=== PATIENT | male | born 1930 | race Caucasian/White ===

== ENCOUNTER 2017-04-26 08:31 | Inpatient (IN) | payer MEDICARE, OTHER ==
[~2017-04-26] VITALS: Ht 5871 cm; Wt 84.1 kg
[~2017-04-26 08:31] MED LIST: ACET-2119 PO; ATEN25TA PO; ATOR-2 PO; CARB1TAB23 PO; COLC0.6T67 PO; DOCU100C41 PO; ERGO500014 PO; FAMO40TA73 PO; FLO0.4C PO; HYDR-3965 PO; HYDR-3972 PO; LORA-512 PO; LYR25C PO; MYL80T PO; POLY15DR56 EACHEYE; SENN-61 PO; SPIR25TA PO
[2017-04-26] MEDS ORDERED: furosemide 40mg/4ml inj IV ONE (08:40)
[2017-04-26 09:14] LABS: BASOPHILS % (AUTO) 0.3 % (0-1); EOSINOPHILS # (AUTO) 0.2 X10'3 (0-0.9); EOSINOPHILS % (AUTO) 1.7 % (0-6); HEMATOCRIT 37.6 % (42.0-52.0); HEMOGLOBIN 12.3 g/dl (14.0-17.9); LYMPHOCYTES # (AUTO) 0.9 X10'3 (1.1-4.8); LYMPHOCYTES % (AUTO) 8.8 % (21-51); MEAN CORPUSCULAR HEMOGLOBIN 28.3 PG (27.0-31.0); MEAN CORPUSCULAR HGB CONC 32.7 % (33.0-36.5); MEAN CORPUSCULAR VOLUME 86.5 FL (78-98); MEAN PLATELET VOLUME 8.8 FL (7.4-10.4); MONOCYTES # (AUTO) 0.8 X10'3 (0-0.9); MONOCYTES % (AUTO) 8.1 % (2-12); NEUTROPHILS # (AUTO) 8.3 X10'3 (1.8-7.7); NEUTROPHILS % (AUTO) 81.1 % (42-75); PLATELET COUNT 280 X10'3 (140-440); RED BLOOD COUNT 4.34 X10'6 (4.70-6.10); RED CELL DISTRIBUTION WIDTH 18.4 % (11.5-14.5); WHITE BLOOD COUNT 10.3 X10'3 (4.5-11.0)
[2017-04-26 09:28] LABS: PARTIAL THROMBOPLASTIN TIME 30 SECONDS (22-32)
[2017-04-26] MEDS ORDERED: azithromycin/NS 500mg/250ml 250 ML IV ONE (09:35)
[2017-04-26] MEDS ORDERED: cefTRIAXone 1g/NS 100ml IVPB 100 ML IV ONE (09:35)
[2017-04-26 09:39] LABS: ALANINE AMINOTRANSFERASE 7 U/L (12-78); ALBUMIN 3.4 G/DL (3.4-5.0); ALBUMIN/GLOBULIN RATIO 0.8 (1.1-1.5); ALKALINE PHOSPHATASE 61 IU/L (46-116); ANION GAP 6 (8-16); ASPARTATE AMINO TRANSFERASE 18 U/L (10-37); BILIRUBIN,TOTAL 0.5 MG/DL (0.1-1.0); BLOOD UREA NITROGEN 16 MG/DL (7-18); BUN/CREATININE RATIO 13.6 (5.4-32.0); CALCIUM 8.7 MG/DL (8.5-10.1); CHLORIDE 106 MMOL/L (99-107); CREATININE 1.18 MG/DL (0.60-1.10); GLUCOSE 119 MG/DL (70-104); MAGNESIUM 1.5 MG/DL (1.5-2.4); POTASSIUM 4.4 MMOL/L (3.5-5.1); SODIUM 142 MMOL/L (135-145); TOTAL CARBON DIOXIDE 30.1 MMOL/L (24-32); TOTAL PROTEIN 7.6 G/DL (6.4-8.2); eGFR 59 ML/MIN
[2017-04-26 09:51] LABS: ABG HCO3 25.8 mmol/L (22.0-26.0); ABG OXYGEN SATURATION 92.9 % (95-98); ABG PCO2 (T) 42.8 mmHg (35.0-48.0); ABG PO2 (T) 64.6 mmHg (83-108); ALLEN'S TEST Positive; FCOHb 0.8 % (0.5-1.5); FLOW 2 L/min; FMetHb 0.2 % (0.3-1.12); PATIENT TEMPERATURE 37.6; TOTAL HEMOGLOBIN 13.3 G/dl (14.0-18.0)
[2017-04-26 10:00] LABS: CLARITY,URINE Clear (Clear); COLOR,URINE Yellow (Yellow); GLUCOSE, URINE Negative (Neg); KETONES,URINE Negative (Neg); LEUKOCYTE ESTERASE ,URINE Negative (Neg); NITRITES, URINE Negative (Neg); OCCULT BLOOD,URINE Negative (Neg); PROTEIN,URINE 100 mg/dl (Neg); UROBILINOGEN,URINE 0.2 E.U/dL (0.2-1.0)
[2017-04-26 10:06] LABS: UA COLLECTION TYPE CLN CATCH MIDSTREAM
[2017-04-26 10:27] LABS: BACTERIA,URINE NONE SEEN /HPF (Neg); RBC,URINE NONE SEEN /HPF (0-2); SQUAMOUS EPITHELIAL CELL,UR FEW /LPF (FEW); WBC,URINE NONE SEEN /HPF (0-4)
[2017-04-26] MEDS ORDERED: acetaminophen 325mg tablet PO PRN (10:45)
[2017-04-26] MEDS ORDERED: ondansetron/PF 4mg/2ml inj IV PRN (10:45)
[2017-04-26] MEDS ORDERED: magnesium hydroxide 30ml (MOM) UD suspension PO PRN (10:45)
[2017-04-26] MEDS ORDERED: mag hydrox/Alum hydrox/simeth 30ml oral suspension PO PRN (10:45)
[2017-04-26] MEDS ORDERED: atenolol 25mg tablet PO SCH (11:00)
[2017-04-26] MEDS ORDERED: HYDROcodone/acetaminophen 10/325mg tab PO PRN (11:05)
[2017-04-26] MEDS: tamsulosin 0.4mg capsule PO SCH (11:27)
[2017-04-26] MEDS: enoxaparin 40mg/0.4ml syringe SUBCUT SCH (11:27)
[2017-04-26] MEDS: spironolactone 25 MG tablet PO SCH (11:27)
[2017-04-26] MEDS ORDERED: ASPI-1265 PO (12:01)
[2017-04-26] MEDS ORDERED: DEXT15DR7 EACHEYE (12:05)
[2017-04-26] MEDS ORDERED: ALLO100T PO (12:05)
[2017-04-26] MEDS ORDERED: VITA-268 PO (12:06)
[2017-04-26] MEDS ORDERED: OMEP40CA37 PO (12:09)
[2017-04-26] MEDS: piperacillin/tazo 3.375gm/50ml 50 ML IV SCH ×2 (14:20→21:09)
[2017-04-26] MEDS: ipratropium/albuterol 3ml nebule NEB SCH ×3 (15:22→23:46)
[2017-04-26 19:00] VITALS: BP 158/62
[2017-04-26] MEDS ORDERED: atenolol 50mg tablet PO SCH (19:39)
[2017-04-26] MEDS: polyvinyl alcohol ophthalmic drops 15ml bottle EACHEYE SCH (21:00)
[2017-04-26] MEDS: pregabalin 25mg capsule PO SCH (21:01)
[2017-04-26] MEDS: atorvastatin 20mg tablet PO SCH (21:01)
[2017-04-26] MEDS: docusate sod 100mg capsule PO SCH (21:03)
[2017-04-26] MEDS: aspirin 81mg tablet.DR PO SCH (21:04)
[2017-04-26] MEDS: sennosides/docusate sodium tablet PO SCH (21:04)
[2017-04-26] MEDS: famotidine 20mg tablet PO SCH (21:04)
[2017-04-26] MEDS: carbidoba-levodopa 25-100mg tablet PO SCH (21:05)
[2017-04-26 23:00] VITALS: BP 158/62
[2017-04-27] MEDS: piperacillin/tazo 3.375gm/50ml 50 ML IV SCH ×4 (02:44→21:44)
[2017-04-27 03:00] VITALS: BP 168/72
[2017-04-27] MEDS: ipratropium/albuterol 3ml nebule NEB SCH ×6 (04:05→23:00)
[2017-04-27] MEDS ORDERED: furosemide 10 MG/1 ML 10ml inj IV ONE (04:55)
[2017-04-27 05:21] LABS: ALBUMIN 3.3 G/DL (3.4-5.0); ANION GAP 13 (8-16); BLOOD UREA NITROGEN 22 MG/DL (7-18); BUN/CREATININE RATIO 17.3 (5.4-32.0); CALCIUM 8.5 MG/DL (8.5-10.1); CHLORIDE 103 MMOL/L (99-107); CREATININE 1.27 MG/DL (0.60-1.10); GLUCOSE 135 MG/DL (70-104); POTASSIUM 4.1 MMOL/L (3.5-5.1); SODIUM 142 MMOL/L (135-145); TOTAL CARBON DIOXIDE 26.3 MMOL/L (24-32); eGFR 54 ML/MIN
[2017-04-27 05:25] LABS: TROPONIN I 0.68 NG/ML (0.0-0.05)
[2017-04-27 05:38] LABS: BASOPHILS # (AUTO) 0.1 X10'3 (0-0.2); BASOPHILS % (AUTO) 0.6 % (0-1); EOSINOPHILS % (AUTO) 0.4 % (0-6); HEMATOCRIT 38.9 % (42.0-52.0); HEMOGLOBIN 12.6 g/dl (14.0-17.9); LYMPHOCYTES # (AUTO) 1.1 X10'3 (1.1-4.8); LYMPHOCYTES % (AUTO) 12.1 % (21-51); MEAN CORPUSCULAR HGB CONC 32.5 % (33.0-36.5); MEAN PLATELET VOLUME 9.2 FL (7.4-10.4); MONOCYTES % (AUTO) 11.4 % (2-12); NEUTROPHILS # (AUTO) 6.7 X10'3 (1.8-7.7); NEUTROPHILS % (AUTO) 75.5 % (42-75); PLATELET COUNT 243 X10'3 (140-440); RED BLOOD COUNT 4.52 X10'6 (4.70-6.10); RED CELL DISTRIBUTION WIDTH 18.7 % (11.5-14.5); WHITE BLOOD COUNT 8.9 X10'3 (4.5-11.0)
[2017-04-27 06:00] VITALS: BP 154/74
[2017-04-27] MEDS: polyvinyl alcohol ophthalmic drops 15ml bottle EACHEYE SCH ×2 (07:28→21:44)
[2017-04-27] MEDS: enoxaparin 40mg/0.4ml syringe SUBCUT SCH (07:43)
[2017-04-27] MEDS: carbidoba-levodopa 25-100mg tablet PO SCH ×2 (07:44→21:45)
[2017-04-27] MEDS: famotidine 20mg tablet PO SCH ×2 (07:44→21:45)
[2017-04-27] MEDS: pregabalin 25mg capsule PO SCH ×2 (07:44→21:46)
[2017-04-27] MEDS: spironolactone 25 MG tablet PO SCH (07:44)
[2017-04-27] MEDS: loratadine 10mg tablet PO SCH (07:45)
[2017-04-27] MEDS: sennosides/docusate sodium tablet PO SCH ×2 (07:45→21:45)
[2017-04-27] MEDS: aspirin 81mg tablet.DR PO SCH (07:45)
[2017-04-27] MEDS: docusate sod 100mg capsule PO SCH ×2 (07:46→21:46)
[2017-04-27] MEDS ORDERED: atenolol 25mg tablet PO ONE (07:55)
[2017-04-27] MEDS ORDERED: guaiFENesin/DM 10ml UD oral syrup PO PRN (10:30)
[2017-04-27] MEDS: colchicine 0.6mg tablet PO SCH (10:38)
[2017-04-27] MEDS ORDERED: guaiFENesin/DM oral syrup 5 ML CUP PO PRN (10:52)
[2017-04-27 11:00] VITALS: BP 144/68
[2017-04-27 15:00] VITALS: BP 102/57
[2017-04-27] MEDS: tamsulosin 0.4mg capsule PO SCH (15:57)
[2017-04-27 19:00] VITALS: BP 155/64
[2017-04-27] MEDS: atorvastatin 20mg tablet PO SCH (21:45)
[2017-04-27] MEDS: lactobacillus rhamnosus 10,000 MMU CELLS/CAPSULE PO SCH (21:46)
[2017-04-27] MEDS: magnesium oxide 400mg tablet PO SCH (21:52)
[2017-04-27 23:00] VITALS: BP 137/64
[2017-04-28] MEDS: piperacillin/tazo 3.375gm/50ml 50 ML IV SCH ×4 (02:29→21:23)
[2017-04-28 03:00] VITALS: BP 142/72
[2017-04-28] MEDS: ipratropium/albuterol 3ml nebule NEB SCH (03:00)
[2017-04-28] MEDS ORDERED: ipratropium/albuterol 3ml nebule NEB PRN (05:20)
[2017-04-28 05:27] LABS: BASOPHILS % (AUTO) 0.6 % (0-1); EOSINOPHILS # (AUTO) 0.1 X10'3 (0-0.9); EOSINOPHILS % (AUTO) 0.9 % (0-6); HEMATOCRIT 40.8 % (42.0-52.0); HEMOGLOBIN 13.2 g/dl (14.0-17.9); LYMPHOCYTES # (AUTO) 1.4 X10'3 (1.1-4.8); LYMPHOCYTES % (AUTO) 21.4 % (21-51); MEAN CORPUSCULAR HEMOGLOBIN 27.9 PG (27.0-31.0); MEAN CORPUSCULAR HGB CONC 32.3 % (33.0-36.5); MEAN CORPUSCULAR VOLUME 86.2 FL (78-98); MEAN PLATELET VOLUME 9.3 FL (7.4-10.4); MONOCYTES # (AUTO) 1.1 X10'3 (0-0.9); MONOCYTES % (AUTO) 16.5 % (2-12); NEUTROPHILS # (AUTO) 3.9 X10'3 (1.8-7.7); NEUTROPHILS % (AUTO) 60.6 % (42-75); PLATELET COUNT 219 X10'3 (140-440); RED BLOOD COUNT 4.74 X10'6 (4.70-6.10); RED CELL DISTRIBUTION WIDTH 18.1 % (11.5-14.5); WHITE BLOOD COUNT 6.5 X10'3 (4.5-11.0)
[2017-04-28 05:59] LABS: ALBUMIN 3.2 G/DL (3.4-5.0); ANION GAP 9 (8-16); BLOOD UREA NITROGEN 27 MG/DL (7-18); BUN/CREATININE RATIO 18.8 (5.4-32.0); CALCIUM 8.9 MG/DL (8.5-10.1); CHLORIDE 102 MMOL/L (99-107); CREATININE 1.44 MG/DL (0.60-1.10); GLUCOSE 109 MG/DL (70-104); MAGNESIUM 2.1 MG/DL (1.5-2.4); POTASSIUM 4.4 MMOL/L (3.5-5.1); SODIUM 143 MMOL/L (135-145); TOTAL CARBON DIOXIDE 31.7 MMOL/L (24-32); eGFR 47 ML/MIN
[2017-04-28 06:00] VITALS: BP 176/87
[2017-04-28] MEDS: pregabalin 25mg capsule PO SCH ×2 (07:53→21:23)
[2017-04-28] MEDS: carbidoba-levodopa 25-100mg tablet PO SCH ×2 (07:53→21:23)
[2017-04-28] MEDS: atenolol 50mg tablet PO SCH (07:53)
[2017-04-28] MEDS: famotidine 20mg tablet PO SCH ×2 (07:54→21:23)
[2017-04-28] MEDS: colchicine 0.6mg tablet PO SCH (07:54)
[2017-04-28] MEDS: aspirin 81mg tablet.DR PO SCH (07:54)
[2017-04-28] MEDS: magnesium oxide 400mg tablet PO SCH ×2 (07:54→21:23)
[2017-04-28] MEDS: lactobacillus rhamnosus 10,000 MMU CELLS/CAPSULE PO SCH ×2 (07:54→21:23)
[2017-04-28] MEDS: spironolactone 25 MG tablet PO SCH (07:54)
[2017-04-28] MEDS: sennosides/docusate sodium tablet PO SCH ×2 (07:54→21:24)
[2017-04-28] MEDS: loratadine 10mg tablet PO SCH (07:54)
[2017-04-28] MEDS: polyvinyl alcohol ophthalmic drops 15ml bottle EACHEYE SCH ×2 (07:54→21:22)
[2017-04-28] MEDS: docusate sod 100mg capsule PO SCH ×2 (07:54→21:23)
[2017-04-28] MEDS: tamsulosin 0.4mg capsule PO SCH (07:54)
[2017-04-28] MEDS: enoxaparin 40mg/0.4ml syringe SUBCUT SCH (07:55)
[2017-04-28 11:00] VITALS: BP 115/53
[2017-04-28 15:00] VITALS: BP 143/60
[2017-04-28] MEDS ORDERED: bisacodyl 10mg suppository rectal RC PRN (20:55)
[2017-04-28] MEDS: atorvastatin 20mg tablet PO SCH (21:23)
[2017-04-29] MEDS: piperacillin/tazo 3.375gm/50ml 50 ML IV SCH ×4 (02:50→21:20)
[2017-04-29 05:38] LABS: ANION GAP 6 (8-16); BLOOD UREA NITROGEN 28 MG/DL (7-18); BUN/CREATININE RATIO 19.9 (5.4-32.0); CALCIUM 8.4 MG/DL (8.5-10.1); CHLORIDE 103 MMOL/L (99-107); CREATININE 1.41 MG/DL (0.60-1.10); GLUCOSE 98 MG/DL (70-104); POTASSIUM 4.3 MMOL/L (3.5-5.1); SODIUM 143 MMOL/L (135-145); TOTAL CARBON DIOXIDE 33.8 MMOL/L (24-32); eGFR 48 ML/MIN
[2017-04-29 05:39] LABS: BASOPHILS % (AUTO) 0.3 % (0-1); EOSINOPHILS # (AUTO) 0.1 X10'3 (0-0.9); EOSINOPHILS % (AUTO) 0.9 % (0-6); HEMOGLOBIN 12.6 g/dl (14.0-17.9); LYMPHOCYTES # (AUTO) 1.6 X10'3 (1.1-4.8); LYMPHOCYTES % (AUTO) 23.9 % (21-51); MEAN CORPUSCULAR HEMOGLOBIN 28.1 PG (27.0-31.0); MEAN CORPUSCULAR HGB CONC 32.2 % (33.0-36.5); MEAN CORPUSCULAR VOLUME 87.2 FL (78-98); MEAN PLATELET VOLUME 9.2 FL (7.4-10.4); MONOCYTES # (AUTO) 0.9 X10'3 (0-0.9); MONOCYTES % (AUTO) 13.3 % (2-12); NEUTROPHILS # (AUTO) 4.2 X10'3 (1.8-7.7); NEUTROPHILS % (AUTO) 61.6 % (42-75); PLATELET COUNT 204 X10'3 (140-440); RED BLOOD COUNT 4.48 X10'6 (4.70-6.10); RED CELL DISTRIBUTION WIDTH 18.6 % (11.5-14.5); WHITE BLOOD COUNT 6.8 X10'3 (4.5-11.0)
[2017-04-29 06:00] VITALS: BP 175/76
[2017-04-29] MEDS: sennosides/docusate sodium tablet PO SCH ×2 (08:00→21:21)
[2017-04-29] MEDS: docusate sod 100mg capsule PO SCH ×2 (08:00→21:20)
[2017-04-29] MEDS: levoFLOXACIN-Levaquin 250mg/D5 50 ML IV SCH (08:29)
[2017-04-29] MEDS: loratadine 10mg tablet PO SCH (08:29)
[2017-04-29] MEDS: famotidine 20mg tablet PO SCH ×2 (08:30→21:20)
[2017-04-29] MEDS: magnesium oxide 400mg tablet PO SCH (08:30)
[2017-04-29] MEDS: colchicine 0.6mg tablet PO SCH (08:30)
[2017-04-29] MEDS: aspirin 81mg tablet.DR PO SCH (08:30)
[2017-04-29] MEDS: atenolol 50mg tablet PO SCH (08:30)
[2017-04-29] MEDS: carbidoba-levodopa 25-100mg tablet PO SCH ×2 (08:30→21:19)
[2017-04-29] MEDS: spironolactone 25 MG tablet PO SCH (08:30)
[2017-04-29] MEDS: tamsulosin 0.4mg capsule PO SCH (08:30)
[2017-04-29] MEDS: pregabalin 25mg capsule PO SCH ×2 (08:31→21:20)
[2017-04-29] MEDS: polyvinyl alcohol ophthalmic drops 15ml bottle EACHEYE SCH ×2 (08:31→20:00)
[2017-04-29] MEDS: enoxaparin 40mg/0.4ml syringe SUBCUT SCH (08:31)
[2017-04-29] MEDS: lactobacillus rhamnosus 10,000 MMU CELLS/CAPSULE PO SCH ×2 (08:31→21:20)
[2017-04-29 11:00] VITALS: BP 140/59
[2017-04-29 12:25] LABS: ABG BASE EXCESS 1.3 mmol/L (-2.0-3.0); ABG HCO3 28.5 mmol/L (22.0-26.0); ABG OXYGEN SATURATION 92.5 % (95-98); ABG PCO2 (T) 56.5 mmHg (35.0-48.0); ABG PO2 (T) 69.1 mmHg (83-108); ALLEN'S TEST Positive; FCOHb 0.2 % (0.5-1.5); FLOW 2 L/min; FMetHb 0.2 % (0.3-1.12); FO2Hb 92.1 % (94-100); RESPIRATORY RATE (OBSERVED) 20 b/min; TOTAL HEMOGLOBIN 12.9 G/dl (14.0-18.0)
[2017-04-29 15:00] VITALS: BP 143/59
[2017-04-29 19:00] VITALS: BP 124/70
[2017-04-29] MEDS: atorvastatin 10mg tablet PO SCH (21:19)
[2017-04-29 23:00] VITALS: BP 148/65
[2017-04-30] MEDS: piperacillin/tazo 3.375gm/50ml 50 ML IV SCH ×4 (02:29→20:55)
[2017-04-30 03:00] VITALS: BP 167/87
[2017-04-30 05:41] LABS: BASOPHILS % (AUTO) 0.3 % (0-1); EOSINOPHILS # (AUTO) 0.1 X10'3 (0-0.9); EOSINOPHILS % (AUTO) 1.2 % (0-6); HEMATOCRIT 37.5 % (42.0-52.0); HEMOGLOBIN 11.9 g/dl (14.0-17.9); LYMPHOCYTES # (AUTO) 1.7 X10'3 (1.1-4.8); LYMPHOCYTES % (AUTO) 29.8 % (21-51); MEAN CORPUSCULAR HEMOGLOBIN 27.8 PG (27.0-31.0); MEAN CORPUSCULAR HGB CONC 31.6 % (33.0-36.5); MEAN PLATELET VOLUME 9.5 FL (7.4-10.4); MONOCYTES # (AUTO) 0.8 X10'3 (0-0.9); MONOCYTES % (AUTO) 13.5 % (2-12); NEUTROPHILS # (AUTO) 3.2 X10'3 (1.8-7.7); NEUTROPHILS % (AUTO) 55.2 % (42-75); PLATELET COUNT 199 X10'3 (140-440); RED BLOOD COUNT 4.26 X10'6 (4.70-6.10); RED CELL DISTRIBUTION WIDTH 18.1 % (11.5-14.5); WHITE BLOOD COUNT 5.7 X10'3 (4.5-11.0)
[2017-04-30 05:59] LABS: ALBUMIN 2.6 G/DL (3.4-5.0); ANION GAP 9 (8-16); BLOOD UREA NITROGEN 27 MG/DL (7-18); BUN/CREATININE RATIO 18.1 (5.4-32.0); CALCIUM 8.2 MG/DL (8.5-10.1); CHLORIDE 101 MMOL/L (99-107); CREATININE 1.49 MG/DL (0.60-1.10); GLUCOSE 95 MG/DL (70-104); POTASSIUM 4.1 MMOL/L (3.5-5.1); SODIUM 143 MMOL/L (135-145); TOTAL CARBON DIOXIDE 32.9 MMOL/L (24-32); eGFR 45 ML/MIN
[2017-04-30 06:00] VITALS: BP 176/77
[2017-04-30] MEDS: enoxaparin 40mg/0.4ml syringe SUBCUT SCH (08:59)
[2017-04-30] MEDS: levoFLOXACIN-Levaquin 250mg/D5 50 ML IV SCH (09:00)
[2017-04-30] MEDS: atenolol 50mg tablet PO SCH (09:00)
[2017-04-30] MEDS: docusate sod 100mg capsule PO SCH ×2 (09:00→20:00)
[2017-04-30] MEDS: tamsulosin 0.4mg capsule PO SCH (09:00)
[2017-04-30] MEDS: colchicine 0.6mg tablet PO SCH (09:00)
[2017-04-30] MEDS: aspirin 81mg tablet.DR PO SCH (09:00)
[2017-04-30] MEDS: sennosides/docusate sodium tablet PO SCH ×2 (09:00→20:00)
[2017-04-30] MEDS: lactobacillus rhamnosus 10,000 MMU CELLS/CAPSULE PO SCH ×2 (09:00→20:55)
[2017-04-30] MEDS: famotidine 20mg tablet PO SCH ×2 (09:00→20:54)
[2017-04-30] MEDS: loratadine 10mg tablet PO SCH (09:00)
[2017-04-30] MEDS: pregabalin 25mg capsule PO SCH ×2 (09:00→20:54)
[2017-04-30] MEDS: spironolactone 25 MG tablet PO SCH (09:01)
[2017-04-30] MEDS: polyvinyl alcohol ophthalmic drops 15ml bottle EACHEYE SCH ×2 (09:01→20:53)
[2017-04-30] MEDS: carbidoba-levodopa 25-100mg tablet PO SCH ×2 (09:14→20:54)
[2017-04-30] MEDS: ipratropium/albuterol 3ml nebule NEB SCH ×3 (10:00→20:01)
[2017-04-30] MEDS: furosemide 10 MG/1 ML 10ml inj IV SCH (10:43)
[2017-04-30 11:00] VITALS: BP 167/64
[2017-04-30 15:00] VITALS: BP 94/58
[2017-04-30 19:00] VITALS: BP 144/54
[2017-04-30] MEDS: atorvastatin 10mg tablet PO SCH (20:54)
[2017-04-30 23:00] VITALS: BP 103/52
[2017-05-01 03:00] VITALS: BP 160/53
[2017-05-01] MEDS: piperacillin/tazo 3.375gm/50ml 50 ML IV SCH ×4 (03:04→20:08)
[2017-05-01 06:34] LABS: BASOPHILS % (AUTO) 0.4 % (0-1); EOSINOPHILS # (AUTO) 0.2 X10'3 (0-0.9); EOSINOPHILS % (AUTO) 2.7 % (0-6); HEMATOCRIT 38.5 % (42.0-52.0); HEMOGLOBIN 12.4 g/dl (14.0-17.9); LYMPHOCYTES % (AUTO) 29.6 % (21-51); MEAN CORPUSCULAR HGB CONC 32.2 % (33.0-36.5); MONOCYTES # (AUTO) 0.7 X10'3 (0-0.9); MONOCYTES % (AUTO) 10.2 % (2-12); NEUTROPHILS # (AUTO) 3.9 X10'3 (1.8-7.7); NEUTROPHILS % (AUTO) 57.1 % (42-75); PLATELET COUNT 201 X10'3 (140-440); RED BLOOD COUNT 4.43 X10'6 (4.70-6.10); WHITE BLOOD COUNT 6.8 X10'3 (4.5-11.0)
[2017-05-01 07:00] VITALS: BP 152/65
[2017-05-01 07:47] LABS: ALBUMIN 2.7 G/DL (3.4-5.0); ANION GAP 8 (8-16); BLOOD UREA NITROGEN 27 MG/DL (7-18); BUN/CREATININE RATIO 19.4 (5.4-32.0); CALCIUM 8.2 MG/DL (8.5-10.1); CHLORIDE 103 MMOL/L (99-107); CREATININE 1.39 MG/DL (0.60-1.10); GLUCOSE 92 MG/DL (70-104); SODIUM 145 MMOL/L (135-145); TOTAL CARBON DIOXIDE 33.7 MMOL/L (24-32); eGFR 49 ML/MIN
[2017-05-01 07:50] LABS: POTASSIUM 4.2 MMOL/L (3.5-5.1)
[2017-05-01] MEDS: docusate sod 100mg capsule PO SCH ×2 (08:00→20:02)
[2017-05-01] MEDS: sennosides/docusate sodium tablet PO SCH ×2 (08:00→20:01)
[2017-05-01] MEDS: ipratropium/albuterol 3ml nebule NEB SCH ×3 (08:50→20:40)
[2017-05-01] MEDS: atenolol 50mg tablet PO SCH (09:20)
[2017-05-01] MEDS: tamsulosin 0.4mg capsule PO SCH (09:20)
[2017-05-01] MEDS: famotidine 20mg tablet PO SCH ×2 (09:20→20:06)
[2017-05-01] MEDS: pregabalin 25mg capsule PO SCH ×2 (09:20→20:04)
[2017-05-01] MEDS: spironolactone 25 MG tablet PO SCH (09:20)
[2017-05-01] MEDS: colchicine 0.6mg tablet PO SCH (09:20)
[2017-05-01] MEDS: polyvinyl alcohol ophthalmic drops 15ml bottle EACHEYE SCH ×2 (09:20→20:41)
[2017-05-01] MEDS: carbidoba-levodopa 25-100mg tablet PO SCH ×2 (09:20→20:37)
[2017-05-01] MEDS: aspirin 81mg tablet.DR PO SCH (09:20)
[2017-05-01] MEDS: enoxaparin 40mg/0.4ml syringe SUBCUT SCH (09:21)
[2017-05-01] MEDS: lactobacillus rhamnosus 10,000 MMU CELLS/CAPSULE PO SCH ×2 (09:31→20:00)
[2017-05-01] MEDS: loratadine 10mg tablet PO SCH (09:31)
[2017-05-01] MEDS: furosemide 10 MG/1 ML 10ml inj IV SCH (09:31)
[2017-05-01 11:00] VITALS: BP 148/66
[2017-05-01] MEDS: levoFLOXACIN 250mg tablet PO SCH (11:50)
[2017-05-01 15:00] VITALS: BP 134/63
[2017-05-01] MEDS ORDERED: atorvastatin 20mg tablet PO SCH (17:35)
[2017-05-01 18:30] VITALS: BP 130/62
[2017-05-01 22:00] VITALS: BP 132/62
[2017-05-02 02:00] VITALS: BP 131/59
[2017-05-02] MEDS: piperacillin/tazo 3.375gm/50ml 50 ML IV SCH ×2 (02:15→08:15)
[2017-05-02] MEDS: ipratropium/albuterol 3ml nebule NEB SCH (02:33)
[2017-05-02] MEDS: furosemide 10 MG/1 ML 10ml inj IV SCH (07:57)
[2017-05-02] MEDS: lactobacillus rhamnosus 10,000 MMU CELLS/CAPSULE PO SCH (08:00)
[2017-05-02] MEDS: enoxaparin 40mg/0.4ml syringe SUBCUT SCH (08:04)
[2017-05-02] MEDS: polyvinyl alcohol ophthalmic drops 15ml bottle EACHEYE SCH (08:07)
[2017-05-02 09:01] LABS: ABG BASE EXCESS 7.8 mmol/L (-2.0-3.0); ABG HCO3 34.4 mmol/L (22.0-26.0); ABG OXYGEN SATURATION 93.2 % (95-98); ABG PCO2 (T) 56.5 mmHg (35.0-48.0); ABG PH (T) 7.402 (7.350-7.450); ABG PO2 (T) 69.4 mmHg (83-108); ALLEN'S TEST Positive; FCOHb 0.5 % (0.5-1.5); FLOW 2 L/min; FMetHb 0.2 % (0.3-1.12); FO2Hb 92.5 % (94-100); TOTAL HEMOGLOBIN 13.5 G/dl (14.0-18.0)
[2017-05-02 09:46] LABS: MAGNESIUM 1.7 MG/DL (1.5-2.4); PHOSPHORUS 3.5 MG/DL (2.3-4.5); TROPONIN I 0.06 NG/ML (0.0-0.05)
[2017-05-02 10:57] LABS: CLARITY,URINE CLEAR (Clear); COLOR,URINE STRAW (Yellow); GLUCOSE, URINE NEGATIVE (Neg); KETONES,URINE NEGATIVE (Neg); LEUKOCYTE ESTERASE ,URINE NEGATIVE (Neg); NITRITES, URINE NEGATIVE (Neg); OCCULT BLOOD,URINE NEGATIVE (Neg); PH,URINE 5.5 (4.8-8.0); PROTEIN,URINE NEGATIVE (Neg); UROBILINOGEN,URINE 0.2 E.U/dL (0.2-1.0)
[2017-05-02 10:58] LABS: UA COLLECTION TYPE NON-SPECIFIED
[2017-05-02 11:00] VITALS: BP 152/63
[2017-05-02] MEDS: spironolactone 25 MG tablet PO SCH (12:12)
[2017-05-02] MEDS: colchicine 0.6mg tablet PO SCH (12:12)
[2017-05-02] MEDS: docusate sod 100mg capsule PO SCH (12:12)
[2017-05-02] MEDS: loratadine 10mg tablet PO SCH (12:12)
[2017-05-02] MEDS: famotidine 20mg tablet PO SCH (12:13)
[2017-05-02] MEDS: aspirin 81mg tablet.DR PO SCH (12:13)
[2017-05-02] MEDS: pregabalin 25mg capsule PO SCH (12:13)
[2017-05-02] MEDS: tamsulosin 0.4mg capsule PO SCH (12:13)
[2017-05-02] MEDS: sennosides/docusate sodium tablet PO SCH (12:13)
[2017-05-02] MEDS: levoFLOXACIN 250mg tablet PO SCH (12:14)
[2017-05-02] MEDS: atenolol 50mg tablet PO SCH (12:14)
[2017-05-02] MEDS: carbidoba-levodopa 25-100mg tablet PO SCH (12:14)
== END 2017-05-02 13:40 | DRG 291 ==
LOC: ER 08:31 → ED HOLD 10:44 → PCU 3S 19:28
PROVIDERS: ADMIT Family Medicine; ATTEND Family Medicine
DX: I11.0 Hypertensive heart disease with heart failure (principal); J18.9 Pneumonia, unspecified organism; J96.01 Acute respiratory failure with hypoxia; I50.33 Acute on chronic diastolic (congestive) heart failure; G20 Parkinson's disease; D64.9 Anemia, unspecified; I69.349 Monoplegia of lower limb following cerebral infarction affecting unspecified side; K21.9 Gastro-esophageal reflux disease without esophagitis; N40.0 Benign prostatic hyperplasia without lower urinary tract symptoms; G47.00 Insomnia, unspecified; M10.9 Gout, unspecified; E78.00 Pure hypercholesterolemia, unspecified; F32.9 Major depressive disorder, single episode, unspecified; Z66 Do not resuscitate; I69.391 Dysphagia following cerebral infarction; I25.2 Old myocardial infarction; Z99.3 Dependence on wheelchair; Z79.899 Other long term (current) drug therapy
CPT/HCPCS: 36415; 36600; 70450; 71045; 71250; 80048; 80053; 81001; 81003; 82803; 83605; 83690; 83735; 83880; 84100; 84145; 84484; 85018; 85025; 85610; 85730; 87040; 87070; 92616; 93005; 93306; 94640; 94760; 96365; 96367; 96375; 97110; 97161; 97530; 99291; A4315; A6213; J0456; J0696; J1650; J1940; J1956; J2543; J7030